=== PATIENT | female | born 1980 | race Caucasian/White ===

== ENCOUNTER 2016-07-01 16:54 | Emergency (ER) | payer OTHER ==
[2016-07-01 17:00] VITALS: BP 126/77; PULSE 71; TEMP 98.3; BMI 23.4
--- NOTE | 2016-07-01 17:28 | PDOC ---
History of Present Illness - General History Source: Patient Exam Limitations: No Limitations - History of Present Illness Initial Comments: 07/01/16 17:46 The patient is a 36 year old female with no significant past medical history who presents to the emergency department today for further evaluation of right flank pain for 4 days. The patient states that the pain radiates to the front. The patient describes the pain as burning, constant, and intermittently worsening. The patient notes that she has had chickenpox before. The patient reports that her LMP was 06/09/16. <Pepe Monte - Last Filed: 07/01/16 17:46> <Lizbeth Sabillon - Last Filed: 07/01/16 17:51> - General Chief Complaint: Pain Stated Complaint: RT LOWER BACKSIDE PAIN Time Seen by Provider: 07/01/16 17:24 Past History <Pepe Monte - Last Filed: 07/01/16 17:46> - Past Medical History Other medical history: ENDOMETRIOSIS - Psycho/Social/Smoking Cessation Hx Anxiety: No Suicidal Ideation: No Smoking History: Never smoked Hx Alcohol Use: Yes (SOCIAL) Drug/Substance Use Hx: No Substance Use Type: None <Lizbeth Sabillon - Last Filed: 07/01/16 17:51> - Past Medical History Allergies/Adverse Reactions: Allergies Allergy/AdvReac Type Severity Reaction Status Date / Time No Known Allergies Allergy Verified 07/01/16 17:00 Home Medications: Ambulatory Orders Acyclovir [Zovirax -] 800 mg PO 5XD #35 tablet 07/01/16 Review of Systems - Review of Systems Able to Perform ROS?: Yes Comments:: 07/01/16 17:47 CONSTITUTIONAL: Absent: fever, chills, diaphoresis, generalized weakness, malaise, loss of appetite HEENT: Absent: rhinorrhea, nasal congestion, throat pain, throat swelling, difficulty swallowing, mouth swelling, ear pain, eye pain, visual Changes CARDIOVASCULAR: Absent: chest pain, syncope, palpitations, irregular heart rate, lightheadedness , peripheral edema RESPIRATORY: Absent: cough, shortness of breath, dyspnea with exertion, orthopnea, wheezing, stridor, hemoptysis GASTROINTESTINAL: Absent: abdominal pain, abdominal distension, nausea, vomiting, diarrhea, constipation, melena, hematochezia GENITOURINARY: Absent: dysuria, frequency, urgency, hesitancy, hematuria, flank pain, genital pain MUSCULOSKELETAL: Present: Right flank pain Absent: Arthralgia, joint swelling SKIN: Absent: rash, itching, pallor HEMATOLOGIC/IMMUNOLOGIC: Absent: easy bleeding, easy bruising, lymphadenopathy, frequent infections ENDOCRINE: Absent: unexplained weight gain, unexplained weight loss, heat intolerance, cold intolerance NEUROLOGIC: Absent: headache, focal weakness or paresthesias, dizziness, unsteady gait, seizure, mental status changes, bladder or bowel incontinence PSYCHIATRIC: Absent: anxiety, depression, suicidal or homicidal ideation, hallucinations. <Pepe Monte - Last Filed: 07/01/16 17:46> *Physical Exam - Vital Signs Last Vital Signs Temp Pulse Resp BP Pulse Ox 98.3 F 71 20 126/77 99 07/01/16 16:56 07/01/16 16:56 07/01/16 16:56 07/01/16 16:56 07/01/16 16:56 - Physical Exam Comments: 07/01/16 17:47 GENERAL: Well developed, well nourished. Awake and alert. No acute distress. HEENT: Normocephalic, atraumatic. PERRLA, EOMI. No conjunctival pallor. Sclera are non- icteric. Moist mucous membranes. Oropharynx is clear. NECK: Supple. Full ROM. No JVD. Carotid pulses 2+ and symmetric, without bruits. No thyromegaly. No lymphadenopathy. CARDIOVASCULAR: Regular rate and rhythm. No murmurs, rubs, or gallops. Distal pulses are 2+ and symmetric. PULMONARY: No evidence of respiratory distress. Lungs clear to auscultation bilaterally. No wheezing, rales or rhonchi. ABDOMINAL: Soft. Non-tender. Non-distended. No rebound or guarding. No organomegaly. Normoactive bowel sounds. MUSCULOSKELETAL (+) 2 pimple like lesions on spine. Normal range of motion at all joints. No bony deformities. No CVA tenderness. EXTREMITIES: No cyanosis. No clubbing. No edema. No calf tenderness. SKIN: Warm and dry. Normal capillary refill. No rashes. No jaundice. NEUROLOGICAL: Alert, awake, appropriate. Cranial nerves 2-12 intact. No deficits to light touch and temperature in face, upper extremities and lower extremities. No motor deficits in the in face, upper extremities and lower extremities. Normoreflexic in the upper and lower extremities. Normal speech. Toes are down-going bilaterally. Gait is normal without ataxia. PSYCHIATRIC: Cooperative. Good eye contact. Appropriate mood and affect. <Pepe Monte - Last Filed: 07/01/16 17:46> - Vital Signs Last Vital Signs Temp Pulse Resp BP Pulse Ox 98.3 F 71 20 126/77 99 07/01/16 16:56 07/01/16 16:56 07/01/16 16:56 07/01/16 16:56 07/01/16 16:56 <Lizbeth Sabillon - Last Filed: 07/01/16 17:51> ED Treatment Course - ADDITIONAL ORDERS Additional order review: Laboratory Results 07/01/16 17:15 Urine Color Ltyellow Urine Appearance Clear Urine pH 5.0 Ur Specific [place] 1.025 Urine Protein Negative Urine Glucose (UA) Negative Urine Ketones Negative Urine Blood 1+ H Urine Nitrite Negative Urine Bilirubin Negative Urine Urobilinogen Negative Ur Leukocyte Esterase Negative Urine RBC 2 Urine WBC 2 Ur Epithelial Cells Rare Urine Mucus Rare Urine HCG, Qual Negative <Pepe Monte - Last Filed: 07/01/16 17:46> *DC/Admit/Observation/Transfer - Attestations Scribe Attestion: 07/01/16 17:47 Documentation prepared by Pepe Monte, acting as medical planner for Lizbeth Sabillon MD. <Pepe Monte - Last Filed: 07/01/16 17:46> <Lizbeth Sabillon - Last Filed: 07/01/16 17:51> Diagnosis at time of Disposition: Skin lesion - Discharge Dispostion Disposition: HOME Condition at time of disposition: Stable - Prescriptions Prescriptions: Acyclovir [Zovirax -] 800 mg PO 5XD #35 tablet - Referrals Referrals: STAFF,NOT ON [Primary Care Provider] - - Patient Instructions Printed Discharge Instructions: DI for Rash Additional Instructions: -please follow up with your physician -Your prescription has been sent to your pharmacy
[2016-07-01 17:29] LABS: URINE APPEARANCE CLEAR; URINE BILIRUBIN NEGATIVE (NEGATIVE); URINE BLOOD 1+ (NEGATIVE); URINE COLOR LTYELLOW; URINE GLUCOSE (UA) NEGATIVE (NEGATIVE); URINE KETONE NEGATIVE (NEGATIVE); URINE LEUK ESTERASE NEGATIVE (NEGATIVE); URINE NITRITE NEGATIVE (NEGATIVE); URINE PROTEIN NEGATIVE (NEGATIVE); URINE UROBILINOGEN NEGATIVE E.U./dl (0.2-1.0)
[2016-07-01 17:34] LABS: URINE MUCUS RARE; URINE RBC 2 /hpf (0-3); URINE WBC 2 /hpf (3-5)
== END 2016-07-01 18:01 | disposition home or self-care (01) ==
LOC: JER 16:54
DX: L98.8 Other specified disorders of the skin and subcutaneous tissue (principal)
CPT/HCPCS: 81003; 81015; 84703; 99282-25